=== PATIENT | male | born 2000 | race Caucasian/White ===

== ENCOUNTER 2024-10-16 14:46 | Emergency (ER) | payer OTHER, BC, SELFPAY ==
[2024-10-16 15:02] VITALS: BP 120/65; PULSE 52; RESP 16; TEMP 37; O2SAT 100
--- OUTSIDE RECORDS SUMMARY | 2024-10-16 15:03 | XMS_ITS | Continuity of Care Document ---
Author Name [facility] Organization [facility] Care Team Providers Care Benefits Specialist Name Role Phone [facility] Unavailable Unavailable Medications Combined list of outpatient medications from Department of Defense and Veterans Affairs facilities.Medications provided include 1) outpatient medications from the last 15 months, and 2) patient-reported medications. Medication Details Route Status Patient Instructions Prescription Expires Prescription Number Last Dispense Date Ordering Provider Order Date Order Qty Source doxycycline hyclate 100 mg oral tablet 0 total refill(s ) Ordered 2019 No Facilit y Access Allergies, Adverse Reactions, Alerts Combined list of allergies from Department of Defense and Veterans Affairs facilities. It does not include entries that were removed or entered in error. Substance Category Reaction Severity Reaction type Status Date Reported Comments Source No Known Allergies Drug allergy (disorder) active 05/02/2018 Ruthie Lazaro [place] Immunizations Combined list of available immunizations from the Department of Defense and Veterans Affairs facilities. Immunization Series Date Given Administered By Site Reaction Lot Number CVX Code Drug Model Builder Display Status Comments Source typhoid Vi capsular polysaccharid e vac 2019 [id number] sanofi pasteur complet ed typhoid Vi capsular polysacch aride vac 04/09/19 Given Ambulat ory Pharmac y anthrax vaccine 2019 [id number] Emergent [employer] complet ed anthrax vaccine 04/09/19 Given Ambulat ory Pharmac y anthrax vaccine 2019 zzLef t Arm [id number] [employer] complet ed anthrax vaccine 04/09/19 Given Ambulat ory Pharmac y typhoid Vi capsular polysaccharid e vac 2019 zzLef t Arm [id number] sanofi pasteur complet ed typhoid Vi capsular polysacch aride vac 04/09/19 Given Ambulat ory Pharmac y anthrax vaccine 1 2019 CHRISTIANE HARRY [id number] [employer] (MIP) complet ed anthrax vaccine DoD typhoid Vi capsular polysaccharid e vaccine 1 2019 CHRISTIANE HARRY [id number] Sanofi Pasteur ([facility]) complet ed typhoid Vi capsular polysacch aride vaccine DoD influenza, injectable, quadrivalent- pf 2018 [id number] 150 Seqirus complet ed influenza , injectabl e, quadrival ent-pf 01/03/19 Given Ambulat ory Pharmac y influenza, injectable, quadrivalent- pf 2018 [id number] 150 Seqirus complet ed influenza , injectabl e, quadrival ent-pf 01/03/19 Given Ambulat ory Pharmac y Influenza, injectable, quadrivalent, preservative free 1 2018 [id number] 150 Seqirus (SEQ) complet ed Influenza , injectabl e, quadrival ent, preservat david free DoD hepatitis A adult vaccine 2018 UNK 52 Unknown complet ed hepatitis A adult vaccine 09/01/18 Given Ambulat ory Pharmac y hepatitis B adult vaccine 2018 UNK 43 Unknown complet ed hepatitis B adult vaccine 09/01/18 Given Ambulat ory Pharmac y hepatitis A adult vaccine 2018 UNK 52 Unknown complet ed hepatitis A adult vaccine 09/01/18 Given Ambulat ory Pharmac y hepatitis B adult vaccine 2018 UNK 43 Unknown complet ed hepatitis B adult vaccine 09/01/18 Given Ambulat ory Pharmac y hepatitis B vaccine, adult dosage 3 2018 UNK 43 Unknown (UNK) comple t ed hepatitis B vaccine, adult dosage DoD hepatitis A vaccine, adult dosage 3 2018 UNK 52 Unknown (UNK) comple t ed hepatitis A vaccine, adult dosage DoD hepatitis A-hepatitis B vaccine 2018 [id number] GlaxoSmithKli ne complet ed hepatitis A-hepatit is B vaccine 06/14/18 Given Ambulat ory Pharmac y hepatitis A-hepatitis B vaccine 2018 [id number] 104 GlaxoSmithKli ne complet ed hepatitis A-hepatit is B vaccine 06/14/18 Given Ambulat ory Pharmac y hepatitis A and hepatitis B vaccine 2 2018 [id number] 104 SmithKline (SKB) complet ed hepatitis A and hepatitis B vaccine DoD measles, mumps and rubella virus vaccine 1 2018 UNK 03 Unknown (UNK) Not Given measles, mumps and rubella virus vaccine DoD varicella virus vaccine 1 2018 UNK 21 Unknown (UNK) Not Given varicella virus vaccine DoD adenovirus vaccine, live 2018 [id number] 143 Teva Pharmaceutica ls complet ed adenoviru s vaccine, live 04/23/18 Given Ambulat ory Pharmac y influenza, seasonal, injectable 2018 [id number] 141 GlaxoSmithKli ne complet ed influenza , seasonal, injectabl e 04/23/18 Given Ambulat ory Pharmac y hepatitis A-hepatitis B vaccine 2018 [id number] 104 Teva Pharmaceutica ls complet ed hepatitis A-hepatit is B vaccine 04/23/18 Given Ambulat ory Pharmac y influenza, seasonal, injectable 2018 [id number] 141 GlaxoSmithKli ne complet ed influenza , seasonal, injectabl e 04/23/18 Given Ambulat ory Pharmac y hepatitis A-hepatitis B vaccine 2018 [id number] 104 Teva Pharmaceutica ls complet ed hepatitis A-hepatit is B vaccine 04/23/18 Given Ambulat ory Pharmac y adenovirus vaccine, live 2018 [id number] 5 143 Teva Pharmaceutica ls complet ed adenoviru s vaccine, live 04/23/18 Given Ambulat ory Pharmac y hepatitis A and hepatitis B vaccine 1 2018 [id number] 104 [facility] (BRR) complet ed hepatitis A and hepatitis B vaccine DoD Influenza, seasonal, injectable 1 2018 [id number] 141 [facility] (SKB) complet ed Influenza , seasonal, injectabl e DoD Adenovirus, type 4 and type 7, live, oral 1 2018 [id number] 5 143 [facility] (BRR) complet ed Adenoviru s, type 4 and type 7, live, oral DoD meningococcal A,C,Y,W-135 (MCV4P) 2018 UNK 114 Merck & Company Inc complet ed meningoco ccal A,C,Y,W-1 35 (MCV4P) 04/19/18 Given Ambulat ory Pharmac y poliovirus vaccine, inactivated 2018 [id number] 10 sanofi pasteur complet ed polioviru s vaccine, inactivat ed 04/19/18 Given Ambulat ory Pharmac y tetanus, diphtheria, acellular pertu is 2018 [id number] 115 sanofi pasteur complet ed tetanus, diphtheri a, acellular pertussis 04/19/18 Given Ambulat ory Pharmac y tetanus, diphtheria, acellular pertu is 2018 [id number] 115 sanofi pasteur complet ed tetanus, diphtheri a, acellular pertussis 04/19/18 Given Ambulat ory Pharmac y meningococcal A,C,Y,W-135 (MCV4P) 2018 UNK 114 Merck & Company Inc complet ed meningoco ccal A,C,Y,W-1 35 (MCV4P) 04/19/18 Given Ambulat ory Pharmac y poliovirus vaccine, inactivated 2018 [id number] 10 sanofi pasteur complet ed polioviru s vaccine, inactivat ed 04/19/18 Given Ambulat ory Pharmac y poliovirus vaccine, inactivated 1 2018 [id number] 10 Sanofi Pasteur ([facility]) complet ed polioviru s vaccine, inactivat ed DoD meningococcal polysaccharid e (groups A, C, Y and W-135) diphtheria toxoid conjugate vaccine (MCV4P) 1 2018 UNK 114 Merck (MSD) complet ed meningoco ccal polysacch aride (groups A, C, Y and W-135) diphtheri a toxoid conjugate vaccine (MCV4P) DoD tetanus toxoid, reduced diphtheria toxoid, and acellular pertu is vaccine, adsorbed 1 2018 [id number] 115 Sanofi Pasteur ([facility]) complet ed tetanus toxoid, reduced diphtheri a toxoid, and acellular pertussis vaccine, adsorbed DoD Encounters Combined list of: 1) Encounters from Department of Veterans Affairs facilities going backup to the last 18 months, not all VA inpatient encounters are included; 2) Encounters from the Department of Defense facilities going backup to 280 months. Location Location Details Encounter Type Encounter Number Reason For Visit Attending Provider ADM Date DC Date Status Disposition Source [email or web address] OUTPATIENT [id number] Notes Entered by: ANGELICA BENAVIDES 19 Apr 2018 0825 ------- ------- ------- ------- -- hearing test ANGELICA BENAVIDES 04/19 Released w/o Limitations [place] [place] [place] [id number] HOWIE LARRY 04/20 [facility] Limitations [facility] [place] [id number] Notes Entered by: LÁZARO SMITH 23 Apr 2018 0908 ------- ------- ------- ------- -- IMM DARY NASH 04/23 [facility] w/o Limitations [facility] [place] [place]) [place] [id number] LYNDSEY [place] 05/02 [facility] w/o Limitations [facility] [place] [place] [id number] Notes Entered by: THIEN CARDOZO 14 Jun 2018 0716 ------- ------- ------- ------- -- IMM-DYLAN BROWN 06/14 [facility] w/o Limitations [facility] [place] OUTPATIENT [id number] Notes Entered by: KIANA GREENE 09 Apr 2019 0931 ------- ------- ------- ------- -- NAIMA ENGLE 04/09 Released w/o Limitations [facility]) [facility] OUTPATIENT [id number] Notes Entered by: JAMIA ANDERSEN 06 Jan 2020 0849 ------- ------- ------- ------- -- FLORINA LIHGT 01/05 Released w/o Limitations [facility] ) [facility] OUTPATIENT [id number] Notes Entered by: ARNOLDO VILLAREAL 06 Jan 2020 0923 ------- ------- ------- ------- -- MAGALI CARSON 01/05 Released w/o Limitations [facility]) Procedures Combined list of: 1) Procedures from Department of [facility] Affairs facilities [facility], not all VA non-surgical procedures are included; 2) All procedures from the Department of Defense facilities. Procedure Procedure Type Code Date Perfomer Comments Sourc e No data available for this section [facility] Pharmacy BRIEF EMOTIONAL/BEHAVIO RAL ASSESSMENT (EG, DEPRESSION INVENTORY, ATTENTION-DEFICIT /HYPERACTIVITY DISORDER [ADHD] SCALE), WITH SCORING AND DOCUMENTATION, PER STANDARDIZED INSTRUMENT [facility] PURE TONE AUDIOMETRY (THRESHOLD), AUTOMATED; AIR ONLY [facility] SCREENING TEST OF VISUAL ACUITY, QUANTITATIVE, BILATERAL [facility] HEPATITIS A AND HEPATITIS B VACCINE (HEPA-HEPB), ADULT DOSAGE, FOR INTRAMUSCULAR USE [facility] INFLUENZA VIRUS VACCINE, QUADRIVALENT (IIV4), SPLIT VIRUS, PRESERVATIVE FREE, 0.5 ML DOSAGE, FOR INTRAMUSCULAR USE [facility] SCREENING TEST OF VISUAL ACUITY, QUANTITATIVE, BILATERAL [facility] PURE TONE AUDIOMETRY (THRESHOLD), AUTOMATED; AIR ONLY [facility] Hepatitis A And Hepatitis B (Intramuscular Use) Adult Dosage Hepatitis A And Hepatitis B (Intramuscular Use) Adult Dosage 55087 DYLAN DACOSTA Hepatitis A and Hepatitis B vaccine Adult (TWINRIX) 1mL administered IM in left deltoid, patient observed x 15 minutes post injection with no side effects and or adverse reactions noted.^ DoD Immunization Administration One Vaccine Immunization Administration One Vaccine 08482 DYLAN DACOSTA [facility] Hepatitis A And Hepatitis B (Intramuscular Use) Adult Dosage Hepatitis A And Hepatitis B (Intramuscular Use) Adult Dosage 19337 DARY NASH Visit for an IM injection of 1mL of Twinrix (Hepatitis A and B combination). Was given in the Right Deltoid. Patient was observed for 15 min with no adverse reactions. DoD Immunization Admin Intranasal / Oral Each Additional Vaccine Immunization Admin Intranasal / Oral Each Additional Vaccine 93105 019 DARY NASH DoD Vaccines Adenovirus Type 4 Live, For Oral Use Vaccines Adenovirus Type 4 Live, For Oral Use 69215 019 DARY NASH A single vaccine dose adminstered orally. DoD Vaccines Adenovirus Type 7 Live, For Oral Use Vaccines Adenovirus Type 7 Live, For Oral Use 45424 019 DARY NASH A single vaccine dose adminstered orally. DoD Immunization Administration One Vaccine Immunization Administration One Vaccine 08664 019 DARY NASH DoD Immunization Administration Each Additional Vaccine Immunization Administration Each Additional Vaccine 78506 019 DARY NASH DoD Tdap Vaccine Tdap Vaccine 42305 019 DARY NASH Visit for an IM injection of 0.5mL of Boostrix (Tetanus and Diphtheria Toxoids and Acellular Pertussis). Was given in the Right Deltoid. Patient was observed for 15 min with no adverse reactions. DoD Vaccines Viral Polio, Inactivated (Salk) Vaccines Viral Polio, Inactivated (Salk) 65125 019 DARY NASH Visit for an IM injection of 0.5mL of IPOL (Poliovirus Vaccine Inactivated). Was given in the Right Deltoid. Patient was observed for 15 min with no adverse reactions. DoD Screening Test Of Visual Acuity, Quantitative, Bilateral Screening Test Of Visual Acuity, Quantitative, Bilateral [id number] 019 HOWIE LARRY [facility] Threshold Audiogram (Pure Tone) Automated Threshold Audiogram (Pure Tone) Automated [id number] [id number] ANGELICA BENAVIDES [facility] Typhoid Vaccine Vi Capsular Polysaccharide, For Intramus Use Typhoid Vaccine Vi Capsular Polysaccharide, For Intramus Use 24449 NAIMA TURNER Typhoid, ViCPs; Series #: 1; 0.5 mL; IM; Left Arm; Mfg: Sanofi Pasteur; Lot: [id number]; VIS given (Eva: 08/09/11). DoD Immunization Administration One Vaccine Immunization Administration One Vaccine 27990 NAIMA TURNER DoD Immunization Administration Each Additional Vaccine Immunization Administration Each Additional Vaccine 90091 NAIMA TRUNER [facility] Threshold Audiogram (Pure Tone) Automated Threshold Audiogram (Pure Tone) Automated [id number] FLORINA VACA [facility] Social History Combined list of available smoking, tobacco, and other social history from Department of Defense and Veterans Affairs facilities. Social History Type Response Date Comment Sourc e Sex Representation Male (finding) 12/10/2019 Un known Organization Sexual Orientation Ambula tory Pharmacy Gender identity Ambulator y Pharmacy This section is an empty social history section. DoD Assessment and Plan Combined list of future care activities from Department of Defense and Veterans Affairs facilities (e.g., assessment and plan notes, appointments, orders, and referrals). Additional future care activities may be listed in the Plan of Care section. Result Assessment and Plan Date Source Assessment and Plan No data available for this section 10/16/2024 Ambulatory Pharmacy Functional Status Combined list of recent functional and cognitive assessments recorded at Department of Defense and Veterans Affairs (VA).VA Functional [place] Measurement (FIM) Scale: 1 = Total Assistance (Subject = 0% +), 2 = Maximal Assistance (Subject = 25% +), 3 = Moderate Assistance (Subject = 50% +), 4 = Minimal Assistance (Subject = 75% +), 5 = Supervision, 6 = Modified [place] (Device), 7 = Complete [place] (Timely, Safely). Assessment Date/Time Source Assessment Type Assessment Skill Assessment Score Assessment Details No data available for this section
[2024-10-16] MEDS: TETANUS,DIPHTHERIA,AC PERTUSSIS ADULT (0.5 ML) BOOSTRIX IM (15:22)
--- NOTE | 2024-10-16 15:27 | ED.WOUNDLAC ---
HPI - Wound/Laceration General Chief Complaint: Wound/Laceration Stated Complaint: Laceration to Right Wrist Time Seen by Provider: 10/16/24 15:11 Source: patient and RN notes reviewed Mode of arrival: ambulatory Limitations: no limitations History of Present Illness HPI narrative: Patient presents today with a laceration to the volar aspect of the right wrist that was sustained approximately 3 hours prior to arrival. Patient works for [employer] and cut his wrist on a pointed piece of [place] glass. The glass was not broken and he does not believe there is a piece of glass embedded in his wound. He is unsure of the date of his last tetanus vaccine. He has tried no [id number] interventions prior to arrival. Related Data Home Medications ?Medication ?Instructions ?Recorded ?Confirmed ?Last Taken ?Type No Home Medications 10/16/24 10/16/24 Unknown History Allergies Allergy/AdvReac Type Severity Reaction Status Date / Time No Known Allergies Allergy Verified 10/16/24 15:11 PMFSH Comments At time of signature, I have reviewed and agree with nursing past medical, surgical, social and family history unless otherwise noted. Please see nursing chart for further information. There is no relevant family history pertinent to the presenting complaint Exam Narrative: GENERAL: Well-appearing, well-nourished, and in no acute distress. HEAD: Normocephalic, atraumatic. EYES: EOMI. No redness or drainage. Conjunctivae normal. ENT: Mucous membranes pink and moist. NECK: Normal AROM. CHEST: No respiratory distress. EXTREMITIES: Normal range of motion. No edema. SKIN: Warm, dry, no rash. Capillary refill normal. Normal skin turgor. 4 mm partial-thickness linear laceration to the volar aspect of the right wrist. This laceration only penetrated through the superficial skin. No active bleeding. No foreign bodies. Distal sensation intact. Capillary refill normal. Radial pulse normal. Full range of motion noted. NEURO: No focal deficits. Alert and oriented x3. Gait steady. PSYCH: Normal affect. No signs of depression or anxiety. Course Course Level of Care: Express Care Visit Vital Signs Vital signs: Vital Signs Temperature 98.6 F 10/16/24 15:02 Pulse Rate 52 L 10/16/24 15:02 Respiratory Rate 16 10/16/24 15:02 Blood Pressure 120/65 10/16/24 15:02 Pulse Oximetry 100 10/16/24 15:02 Oxygen Delivery Room Air 10/16/24 15:02 Temperature 98.6 F 10/16/24 15:02 Pulse Rate 52 L 10/16/24 15:02 Respiratory Rate 16 10/16/24 15:02 Blood Pressure 120/65 10/16/24 15:02 Pulse Oximetry 100 10/16/24 15:02 Oxygen Delivery Room Air 10/16/24 15:02 Reviewed Procedures Laceration Laceration 1: Date: 10/16/24 Time: 15:28 Site: upper extremity (Right wrist) Side (If applicable): right Size (cm): 0.4 Description: linear Depth: simple, single layer Local Anesthetic: none Pre-repair: wound explored and irrigated ====== Skin Level ====== Skin layer closed with: dermabond and steri strips ====== Subcutaneous Layer ====== ====== Muscle Layer ====== ====== Tendon Layer ====== MDM - Wound/Laceration MDM Narrative Medical decision making narrative: 24-year-old male patient presents today with a laceration to the right wrist after he cut it on a piece of when show glass while at work today. Upon exam, patient has a 4 mm superficial laceration to the wrist without foreign body or active bleeding. Neurovascularly intact. Wound irrigated and repaired with Steri-Strip and glue. Care instructions given. Vital signs stable. Tetanus shot updated. Differential Diagnosis Differential diagnosis: Likely laceration, avulsion of skin and other (Puncture wound, foreign body) Critical Care Time Critical Care Time Critical Care Time: No Discharge Plan Discharge Clinical Impression: Laceration of right wrist Qualifiers: Encounter type: initial encounter Qualified Code(s): S61.511A - Laceration without foreign body of right wrist, initial encounter Patient Disposition: Home Condition: Stable Instructions: Skin Adhesive Care (ED), Skin Adhesive Strips (ED) Additional Instructions: Your laceration has been repaired with skin glue and Steri-Strips. These will fall off on their own, usually in 5-7 days. You do not need to clean this area, but monitor for any signs of infection such as redness, swelling, increased pain, or drainage, and see your PCP or Occupational Medicine if you note any. Take Tylenol or ibuprofen for pain, if able. Follow-up with your employer regarding workman's compensation. Patient Language: Turkish Prescriptions: No Action No Home Medications Follow-up/Referrals: PHYSICIAN,AIR CONDITIONING TECHNICIAN [Primary Care Provider] - Time of Disposition: 15:27
== END 2024-10-16 15:37 | disposition home or self-care (01) ==
PROVIDERS: Emergency Provider Nurse Practitioner
DX: S61.511A Laceration without foreign body of right wrist, initial encounter (principal); W25.XXXA Contact with sharp glass, initial encounter; Y99.0 Civilian activity done for income or pay; Z23 Encounter for immunization
CPT/HCPCS: 12001; 90471; 90715; 99202; G0463